=== PATIENT | male | born 2000 | race African-American/Black ===

== ENCOUNTER 2021-08-13 17:51 | Emergency (ER) | payer SELFPAY ==
[2021-08-13 18:03] VITALS: BP 141/106; PULSE 125; RESP 16; TEMP 38; O2SAT 100
--- NOTE | 2021-08-13 18:12 | ED.URI ---
HPI - URI/Sore Throat General Chief Complaint: Upper Respiratory Infection Stated Complaint: Congestion,Sore Throat Time Seen by Provider: 08/13/21 18:20 Source: patient, RN notes reviewed and old records reviewed Mode of arrival: ambulatory Limitations: no limitations History of Present Illness HPI Narrative: 21 year old male accompanied by police commanding officer with complaints of fever, chills, acute sore throat, difficulty with swallowing, green mucous, ear pain and jaw pain for the past 2-4 weeks. Patient had been in [facility] was recently transferred to [facility] for hold over till transfer either tomorrow or day after to [facility]. Patient is febrile at 101F at time of triage and is stating severe sore throat. Patient has clear lungs on auscultation, no tachypnea noted or any accessory muscle use, with SAO2 100% on room air. Patient is able to control own secretions, no trismus noted, denies any dental pain, no Giovanny angina noted. Patient has acute red throat with tonsils enlarged and red no lesions or exudates noted but patient rates pain 8/10 and sharp. He has not received any oral medication for pain or for his fever. MD elicited complaint: fever and sore throat Related Data Allergies Allergy/AdvReac Type Severity Reaction Status Date / Time No Known Allergies Allergy Verified 08/13/21 18:28 Review of Systems Review of Systems: CONSTITUTIONAL: Positive for fever, chills, or sweats. EYES: Denies visual changes, redness, or discharge. ENT: Positive for rhinorrhea, congestion, sore throat, or otalgia. CARDIOVASCULAR: Denies chest pain, palpitations, or edema. RESPIRATORY: Reports occasional cough denies dyspnea or any wheezing. GASTROINTESTINAL: Denies abdominal pain, nausea, vomiting, or diarrhea. GENITOURINARY: Denies dysuria or hematuria. SKIN: Denies rash or itching. MUSCULOSKELETAL: Denies back pain, joint pain, reports generalized body aches. NEUROLOGIC: Denies headache, numbness, or weakness. PSYCHIATRIC: Denies anxiety or depression. All systems reviewed & are unremarkable except as noted in HPI and below PMFSH Past Medical History Medical History (Updated 08/16/21 @ 14:56 by Veda Singh NP) No significant past medical history Surgical History Surgical History (Updated 08/16/21 @ 14:50 by Veda Singh NP) No history of previous surgery Family History Family History (Updated 08/16/21 @ 14:49 by Veda Singh NP) Mother Hypertension Grandparent Cancer Social History Social History (Updated 08/16/21 @ 14:51 by Veda Singh NP) Smoking status: Never smoker Alcohol intake: current Alcohol use details: social Substance use: unknown Last use: denies Living arrangements: incarcerated Gender identity (if verbalized by the patient): Male Comments At time of signature, agree with nursing past medical, surgical, social and family history. There is no relevant family history pertinent to the presenting complaint Exam Narrative: GENERAL: Illl-appearing, well-nourished, and in no acute distress. HEAD: Normocephalic, atraumatic. EYES: PERRLA and EOMI. ENT: Nares red and turbinates swollen with some clear rhinorrhea no epistaxis. Mucous membranes moist.TM's normal with good light reflex, throat red with tonsils enlarged and red, no lesions or exudates noted, painful swallowing verbalized, patient is able to control secretions, no trismus noted. NECK: Supple.lymphadenopathy CHEST: Clear to auscultation. No respiratory distress.Patient states occasional cough with greenish sputum, Sao2 100% on room air, respirations even and nonlabored with no tachypnea noted. HEART: Regular rate and rhythm. No murmur heard. Normal peripheral pulses. ABDOMEN: Soft, nontender, nondistended, normal active bowel sounds. EXTREMITIES: Normal range of motion. No edema. SKIN: Warm, dry, no rash. NEURO: No focal deficits. Alert and oriented x3. Course Vital Signs Vital sig
== END 2021-08-13 19:05 | disposition home or self-care (01) ==
PROVIDERS: Emergency Provider Registered Nurse
DX: J03.90 Acute tonsillitis, unspecified (principal); Z20.822 Contact with and (suspected) exposure to COVID-19
CPT/HCPCS: 87081; 87426; 87880; 99203; C9803; G0463